=== PATIENT | female | born 1975 | race Caucasian/White ===

== ENCOUNTER → 2016-03-17 | Outpatient (CLI) | payer OTHER ==
[~2016-03-17] MED LIST: ALPR.25T PO; AZTH250C PO; BC PILL; BPR150TCR; CPR500T PO; DCS100C PO; DOXY100C2 PO; DOXYCYCLINE; ESCT10T PO; FESO4TAB2 PO; HYDR-34 PO; HYDR-3720 PO; HYDR1TAB66 PO; HYOS0.1217 PO; IBP800T PO; LEVO125T PO; LEVO1POW PO; MONONESSA PO; NAPR220C11 PO; ONDA-41 PO; PERCOCET PO; PHEN200T27 PO; PREN1TAB49; PRM25T PO; SPRINTEC PO; VIMOVO PO
--- OUTSIDE RECORDS SUMMARY | 2016-03-17 11:28 | XMS REPORT | Continuity of Care Document ---
Author Author [facility] Organization [facility] Address Unknown Phone Unavailable Care Team Providers Care Manager Human Capital Name Role Phone PCP Unavailable Source Comments Some departments are not documenting in the electronic medical record. If you do not see the information that you expected, contact Release of Information in the Health Information Management department at [phone] for further assistance in locating additional records.[facility] Active Allergies and Adverse Reactions Allergen Noted Date Severity Reactions Comments Other 12/25/2013 RASH Mastisol adhesive Current Medications Prescription Sig. Disp. Refills Start End Date Status Date levothyroxine (SYNTHROID) Take 125 mcg by mouth Active 125 mcg tablet daily. escitalopram oxalate Take 10 mg by mouth Active (LEXAPRO) 10 mg tablet daily. norgestimate-ethinyl Take 1 Tab by mouth Active estradiol(+) daily. (ORTHO-CYCLEN (28); SPRINTEC (28); MONONESSA (28); PREVIFEM) tablet fesoterodine ER(+) Take 4 mg by mouth daily. Active (TOVIAZ) 4 mg tablet HYDROcodone-acetaminophen Take 1 Tab by mouth every Active (+) (VICODIN) 10-325 mg 6 hours as needed. tablet amitriptyline (ELAVIL) 10 Take 10 mg by mouth at Active mg tablet bedtime daily. IBUPROFEN (MOTRIN PO) Take by mouth. Active Active Problems Problem Noted Date Pelvic pain in female 12/25/2013 Overview: Pelvic pain- long standing constipation and early POP. 05/2013: Robotic Hysterectomy and HARRISON for endometriosis. Did not resolve the pain. 10/2013: Cytsocopy Hydrodistention. (Dr. Lucero). Did not resolve pain. Medications include: Amytriptyline, Toviaz, and Lortab. L ast Assessment & Plan: Pelvic pain, possibly contributed by constipation and pelvic organ prolapse. Constipation continues to be a problem for the patient and we recommend a bowel regimen for regularity. Interstial cystitis education was provided. Pelvic floor therapy for dyspareunia. These conservative therapies will likely help the prolapse and we will reassess this in a few months. Plan: Constipation cocktail sheet along with miralax PFRT referral IC diet and information sheet RTC in 4 months to reassess prolapse Social History Tobacco Use Types Packs/Day Years Used Date Former Smoker Cigarettes Smokeless Tobacco: Never Used Alcohol Use Drinks/Week oz/Week Comments Yes Last Filed Vital Signs Vital Sign Reading Time Taken Blood Pressure 97/65 12/25/2013 11:12 AM CDT Pulse 93 12/25/2013 11:12 AM CDT Temperature - - Respiratory Rate 14 12/25/2013 11:12 AM CDT Height 1.676 m (5' 6") 12/25/2013 11:12 AM CDT Weight 72.757 kg (160 lb 6.4 oz) 12/25/2013 11:12 AM CDT Body Mass Index 25.9 12/25/2013 11:12 AM CDT Oxygen Saturation - - Plan of Care Health Maintenance Due Date Last Done Comments Physical (Comprehensive) 05/09/1983 Exam Pertussis Vaccine 05/09/1987 Tetanus Vaccine 1993 Cervical Cancer Screening 1997 Influenza Vaccine 10/29/2015 Results from Last 3 Months Not on file
--- NOTE | 2016-03-18 13:25 | Diagnostic Imaging Report ---
Bilateral screening mammogram. The current study was also evaluated with a Computer Aided Detection (CAD) system. INDICATION: Screening. No current complaints stated on the questionnaire. COMPARISON: 01/31/2011. FINDINGS: The breasts are composed of heterogeneously dense parenchyma which may decrease mammographic sensitivity. There are scattered benign-appearing calcifications. Allowing for technique and positional differences, no suspicious change is seen. IMPRESSION: No significant change. ACR BI-RADS Category 2: Benign findings. Result letter will be mailed to the patient. Note: At least 10% of breast cancer is not imaged by mammography. Dictated by: Dictated on workstation # [id number]
== END ==
LOC: RAD 11:24
PROVIDERS: ATTEND Obstetrics & Gynecology
DX: Z12.31 Encounter for screening mammogram for malignant neoplasm of breast (principal)

== ENCOUNTER → 2017-03-28 | Outpatient (CLI) | payer OTHER ==
--- NOTE | 2017-03-28 09:09 | Diagnostic Imaging Report ---
Indication: Routine screening. Comparison: Comparison is made with prior study from 03/17/2016 and 01/31/2011. Findings: Both breasts show marked parenchymal heterogeneity and increased density, limiting the sensitivity of mammography. No dominant mass or malignant-appearing microcalcifications are seen. The axillae are unremarkable. Impression: BI-RADS category 2. No mammographic features suspicious for malignancy are identified. ACR BI-RADS Category 2: Benign findings. Result letter will be mailed to the patient. Note: At least 10% of breast cancer is not imaged by mammography. Dictated on workstation # [id number]
== END ==
LOC: RAD 07:28
PROVIDERS: ATTEND Obstetrics & Gynecology
DX: Z12.31 Encounter for screening mammogram for malignant neoplasm of breast (principal)
CPT/HCPCS: 77067

== ENCOUNTER → 2017-08-11 | Outpatient (CLI) | payer OTHER ==
--- NOTE | 2017-08-11 14:34 | Diagnostic Imaging Report ---
EXAMINATION: Magnetic resonance imaging of the left knee without intravenous contrast. DATE: August 11, 2017. COMPARISON: MRI left knee, May 15, 2015. INDICATION: 42-year-old female, history of fall with twisting injury of the left knee approximately one month ago. TECHNIQUE: Multiplanar, multisequence non contrast enhanced MR imaging was accomplished. FINDINGS: MENISCI: There is an area of increased signal in the posterior horn of the medial meniscus, likely relating to prior tear. This is essentially unchanged. There is no parameniscal cyst. There is a longitudinal horizontal-type tear involving the anterior horn, body, and posterior horn of the lateral meniscus. There are some multidirectional components of the tear involving the posterior horn of the lateral meniscus. This is essentially unchanged since comparison MRI. LIGAMENTS AND TENDONS: The patient is status post anterior cruciate ligament reconstruction with intact graft. The posterior cruciate ligament is intact. The medial collateral ligament is intact. The iliotibial band, mid third lateral capsular ligament, fibular collateral ligament, biceps femoris tendon and conjoined tendon are intact. The quadriceps tendon and patella ligament are intact. JOINT: There is a full-thickness cartilage fissure involving the medial aspect of the lateral patellar facet. The medial and lateral compartment cartilage is grossly intact. There is no knee joint effusion, prominent synovitis, or identified intra-articular body. BONE: There is unremarkable bone marrow signal. Specifically, negative for fracture, osteomyelitis, osteonecrosis, or marrow replacing process. BURSAE AND SOFT TISSUES: No Bakers cyst. IMPRESSION: 1. Status post anterior cruciate ligament reconstruction with intact graft. Intact posterior cruciate ligament. 2. Unchanged appearance of prior tears of the lateral and medial menisci. No new meniscal tear. No parameniscal cyst. 4. Full-thickness cartilage fissure of the medial aspect of the lateral patellar facet. The additional articular cartilage is intact. No knee joint effusion. 5. No acute fracture, bone contusion, or evidence of osteonecrosis. Dictated by: Dictated on workstation # [id number]
== END ==
LOC: RAD 13:26
PROVIDERS: ATTEND Orthopaedic Surgery
DX: S83.282A Other tear of lateral meniscus, current injury, left knee, initial encounter (principal); S83.242A Other tear of medial meniscus, current injury, left knee, initial encounter; M94.8X6 Other specified disorders of cartilage, lower leg; M22.42 Chondromalacia patellae, left knee; X50.1XXA Overexertion from prolonged static or awkward postures, initial encounter; Z98.890 Other specified postprocedural states
CPT/HCPCS: 73721

== ENCOUNTER → 2018-03-30 | Outpatient (CLI) | payer BC, OTHER ==
--- NOTE | 2018-03-30 15:43 | Diagnostic Imaging Report ---
INDICATION: Screening. COMPARISON: Prior examination from 03/29/201718 and 03/17/2016. EXAMINATION: Bilateral digital screening mammogram with CAD. 3D tomographic images were obtained and reviewed. The current study was also evaluated with a Computer Aided Detection (CAD) system. FINDINGS: There are scattered fibroglandular densities, bilaterally. There are a few benign type calcifications. There is no dominant mass, spiculated lesion or suspicious calcification. Skin, nipples and axilla are unremarkable. IMPRESSION: Category 2, benign. ACR BI-RADS Category 2: Benign findings. Result letter will be mailed to the patient. Note: At least 10% of breast cancer is not imaged by mammography. Dictated on workstation # [id number]
== END ==
LOC: RAD 08:17
PROVIDERS: ATTEND Obstetrics & Gynecology
DX: Z12.31 Encounter for screening mammogram for malignant neoplasm of breast (principal)
CPT/HCPCS: 77067

== ENCOUNTER 2018-04-13 18:55 | Emergency (ER) | payer BC ==
[~2018-04-13] VITALS: Ht 167.6 cm; Wt 72.6 kg
--- OUTSIDE RECORDS SUMMARY | 2018-04-13 19:00 | XMS REPORT | Clinical Summary ---
Author Author [facility] Organization [facility] Address Unknown Phone Unavailable Care Team Providers Care Waterproof Coating Machine Tender Name Role Phone Pastora Gusman MD Unavailable Source Comments Some departments are not documenting in the electronic medical record. If you do not see the information that you expected, contact Release of Information in the Health Information Management department at [phone] for further assistance in locating additional records.[facility] Allergies Comments Active Allergy Reactions Severity Noted Date Mastisol adhesive Unclassified Drug RASH 12/25/2013 Medications End Date Status Medication Sig Dispensed Refills Start Date Active levothyroxine (SYNTHROID) Take 125 mcg 0 125 mcg tablet by mouth daily. Active escitalopram oxalate Take 10 mg by 0 (LEXAPRO) 10 mg tablet mouth daily. Active norgestimate-ethinyl Take 1 Tab by 0 estradiol(+) mouth daily. (ORTHO-CYCLEN (28); SPRINTEC (28); MONONESSA (28); PREVIFEM) tablet Active fesoterodine ER(+) Take 4 mg by 0 (TOVIAZ) 4 mg tablet mouth daily. Active HYDROcodone-acetaminophen Take 1 Tab by 0 (+) (VICODIN) 10-325 mg mouth every 6 tablet hours as needed. Active amitriptyline (ELAVIL) 10 Take 10 mg by 0 mg tablet mouth at bedtime daily. Active IBUPROFEN (MOTRIN PO) Take by 0 mouth. Active Problems Problem Noted Date Pelvic pain in female 12/25/2013 Overview: Pelvic pain- long standing constipation and early POP. 05/2013: Robotic Hysterectomy and HARRISON for endometriosis. Did not resolve the pain. 10/2013: Cytsocopy Hydrodistention. (Dr. Nic). Did not resolve pain. Medications include: Amytriptyline, [...] RTC in 4 months to reassess prolapse Family History Medical History Relation Name Comments Hypertension Father Heart Attack Mother Relation Name Status Comments Father Mother Social History Date Tobacco Use Types Packs/Day Years Used Former Smoker Cigarettes Smokeless Tobacco: Never Used Alcohol Use Drinks/Week oz/Week Comments Yes Sex Assigned at Date Recorded Not on file Industry Job Start Date Occupation Not on file Not on file Not on file Travel End Travel History Travel Start No recent travel history available. Last Filed Vital Signs Time Taken Vital Sign Reading 12/25/2013 11:12 AM CDT Blood Pressure 97/65 12/25/2013 11:12 AM CDT Pulse 93 - Temperature - 12/25/2013 11:12 AM CDT Respiratory Rate 14 - Oxygen Saturation - - Inhaled Oxygen - Concentration 12/25/2013 11:12 AM CDT Weight 72.8 kg (160 lb 6.4 oz) 12/25/2013 11:12 AM CDT Height 167.6 cm (5' 6") 12/25/2013 11:12 AM CDT Body Mass Index 25.89 Plan of Treatment Health Maintenance Due Date Last Done Comments PHYSICAL (COMPREHENSIVE) 05/09/1983 EXAM HIV SCREENING 05/09/1991 DTAP/TDAP VACCINES (1 - 1994 Tdap) CERVICAL CANCER SCREENING 2006 BREAST CANCER SCREENING 2016 INFLUENZA VACCINE 09/27/2017 Results Not on filefrom Last 3 Months
--- OUTSIDE RECORDS SUMMARY | 2018-04-13 19:01 | XMS REPORT | Continuity of Care Document ---
Author Author [facility] Organization [facility] Address Unknown Phone Unavailable Allergies Active Description Code Type Severity Reaction Onset Reported/Identified Relationship to Patient Clinical Status Yes Adhesive Bandage [id number] Drug Allergy Unknown N/A 06/12/2013 Yes MASTISOL MASTISOL Unknown RASH/HIVES 06/12/2013 Medications There is no data. Problems Date Dx Coded Attending Type Code Diagnosis Diagnosed By 11/10/2010 Ot 719.45 JOINT PAIN- PELVIS 11/10/2010 Ot V64.3 NO PROC FOR REASONS NEC 11/17/2010 Ot 244.9 HYPOTHYROIDISM NOS 11/17/2010 Ot 718.95 JT DERANGMENT NOS-PELVIS 11/17/2010 Ot V58.69 OTH MED,LT, CURRENT USE 11/17/2010 Ot V74.8 SCREEN- BACTERIAL DIS NEC 04/12/2011 Ot 300.00 ANXIETY STATE NOS 04/12/2011 Ot 480.9 VIRAL PNEUMONIA NOS 04/12/2011 Ot 786.59 CHEST PAIN NEC 04/12/2011 Ot V45.89 POSTSURGICAL STATES NEC 11/07/2012 ELIZABETH TOLLIVER MD Ot 244.9 HYPOTHYROIDISM NOS 11/07/2012 ELIZABETH TOLLIVER MD Ot 276.8 HYPOPOTASSEMIA 11/07/2012 ELIZABETH TOLLIVER MD Ot 287.5 THROMBOCYTOPENIA NOS 11/07/2012 ELIZABETH TOLLIVER MD Ot 288.50 LEUKOCYTOPENIA, UNSPECIFIED 11/07/2012 ELIZABETH TOLLIVER MD Ot 305.1 TOBACCO USE DISORDER 11/07/2012 ELIZABETH TOLLIVER MD Ot 564.00 UNSPEC CONSTIPATION 11/07/2012 ELIZABETH TOLLIVER MD Ot 569.3 RECTAL ANAL HEMORRHAGE 11/07/2012 ELIZABETH TOLLIVER MD Ot 592.0 CALCULUS OF KIDNEY 11/07/2012 ELIZABETH TOLLIVER MD Ot 617.9 ENDOMETRIOSIS NOS 11/07/2012 ELIZABETH TOLLIVER MD Ot 714.0 RHEUMATOID ARTHRITIS 11/07/2012 ELIZABETH TOLLIVER MD Ot 715.90 OSTEOARTHROS NOS-UNSPEC 11/07/2012 UNRULY GALLEGOS, ELIZABETH Zarate Ot 787.01 NAUSEA WITH VOMITING 11/07/2012 UNRULY GALLEGOS, ELIZABETH Zarate Ot 789.02 ABDOMINAL PAIN, LEFT UPPER QUADRANT 11/07/2012 UNRULY GALLEGOS, ELIZABETH Zarate Ot V12.79 PERSONAL HISTORY OTH SPEC DIGESTIVE SYST 06/19/2013 DANA GALLEGOS, LULA Alberto Ot 616.0 CERVICITIS 06/19/2013 DANA GALLEGOS, LULA Alberto Ot 617.9 ENDOMETRIOSIS NOS 06/19/2013 DANA GALLEGOS, LULA Alberto Ot 618.1 UTERINE PROLAPSE 06/19/2013 DANA GALLEGOS, LULA Alberto Ot 620.2 OVARIAN CYST NEC/NOS 06/19/2013 DANA GALLEGOS, LULA Alberto Ot 620.8 NONINFL DIS OVA/ADNX NEC 11/20/2013 AMINA GALLEGOS, DONA Piña Ot 592.0 CALCULUS OF KIDNEY 11/20/2013 AMINA GALLEGOS, DONA Piña Ot V74.8 SCREEN-BACTERIAL DIS NEC 07/09/2014 DANA GALLEGOS, LULA Alberto Ot 617.9 07/09/2014 DANA GALLEGOS, LULA Alberto Ot 625.9 07/09/2014 DANA GALLEGOS, LULA Alberto Ot V72.63 07/09/2014 DANA GALLEGOS, LULA Alberto Ot V72.84 07/09/2014 DANA GALLEGOS, LULA Alberto Ot V74.8 07/09/2014 AMINA GALLEGOS, DONA A Ot 592.0 07/09/2014 AMINA GALLEGOS, DONA A Ot 595.1 07/09/2014 AMINA GALLEGOS, DONA A Ot 598.9 07/09/2014 AMINA GALLEGOS, DONA A Ot 625.9 07/09/2014 AMINA GALLEGOS, DONA Piña Ot V72.84 05/15/2015 DANA GALLEGOS, LULA Alberto Ot 617.9 05/15/2015 DANA GALLEGOS, LULA Alberto Ot 625.9 05/15/2015 DANA GALLEGOS, LULA Alberto Ot V72.63 05/15/2015 DANA GALLEGOS, LULA Alberto Ot V72.84 05/15/2015 DANA GALLEGOS, LULA Alberto Ot V74.8 05/15/2015 AMINA GALLEGOS, DONA Piña Ot 592.0 05/15/2015 AMINA GALLEGOS, DONA Piña Ot 595.1 05/15/2015 AMINA GALLEGOS, DONA Piña Ot 598.9 05/15/2015 AMINA GALLEGOS, DONA Piña Ot 625.9 05/15/2015 AMINA GALLEGOS, DONA Piña Ot V72.84 05/18/2015 SANDI RODAS MEMBERSHIP SALES ADVISOR Ot M23.612 05/27/2015 SANDI RODAS [employer]BER[employer] SALES ADVISOR Ot M23.612 03/16/2016 Ot 719.65 JOINT SYMPTOM NEC-PELVIS 03/16/2016 Ot V72.83 EXAM PRE- OPERATIVE NEC 03/16/2016 Ot V74.8 SCREEN- BACTERIAL DIS NEC 03/16/2016 Ot V76.12 OTH SCREEN MAMMO-MALIGN NEOPLASM OF GLORIA 03/16/2016 Ot 569.49 RECTAL ANAL DIS NEC 03/16/2016 Ot 787.7 ABNORMAL FECES 03/16/2016 Ot 789.00 ABDOMINAL PAIN, UNSPECIFIED SITE 03/16/2016 Ot 863.40 COLON INJURY NOS-CLOSED 03/16/2016 Ot E000.8 OTHER EXTERNAL CAUSE STATUS 03/16/2016 Ot E928.9 ACCIDENT NOS 03/16/2016 Ot 780.60 FEVER, UNSPECIFIED 03/16/2016 Ot 789.00 ABDOMINAL PAIN, UNSPECIFIED SITE 03/16/2016 Ot 785.1 PALPITATIONS 03/16/2016 Ot 397.0 TRICUSPID VALVE DISEASE 03/16/2016 Ot 424.0 MITRAL VALVE DISORDER 03/16/2016 Ot 785.1 PALPITATIONS 03/16/2016 Ot 786.09 RESPIRATORY ABNORM NEC 03/16/2016 Ot 785.1 PALPITATIONS 03/16/2016 Ot 786.09 RESPIRATORY ABNORM NEC 03/16/2016 Ot 788.0 RENAL COLIC 03/16/2016 ELIZABETH TOLLIVER MD Ot 786.2 COUGH 03/16/2016 ELIZABETH TOLLIVER MD Ot 786.4 ABNORMAL SPUTUM 03/16/2016 ELIZABETH TOLLIVER MD Ot 599.70 HEMATURIA, UNSPECIFIED 03/16/2016 UNRULY GALLEGOS, ELIZABETH Zarate Ot 724.5 BACKACHE NOS 03/16/2016 ELIZABETH TOLLIVER MD Ot 789.00 ABDOMINAL PAIN, UNSPECIFIED SITE 03/18/2016 LULA CORTEZ MD, Ot Z12.31 ENCNTR SCREEN MAMMOGRAM FOR MALIGNANT NE 04/13/2016 LULA CORTEZ MD, Ot Z12.31 ENCNTR SCREEN MAMMOGRAM FOR MALIGNANT NE 04/20/2016 LULA CORTEZ MD Ot 617.9 ENDOMETRIOSIS NOS 04/20/2016 LULA CORTEZ MD Ot 625.9 FEM GENITAL SYMPTOMS NOS 04/20/2016 LULA CORTEZ MD, Ot V72.63 PRE-PROCEDURAL LABORATORY EXAMINATION 04/20/2016 LULA CORTEZ MD, Ot V72.84 EXAM PRE-OPERATIVE NOS 04/20/2016 LULA CORTEZ MD, Ot V74.8 SCREEN-BACTERIAL DIS NEC 04/20/2016 DONA HUYNH MD Ot 592.0 CALCULUS OF KIDNEY 04/20/2016 AMINA GALLEGOS, DONA Piña Ot 595.1 CHR INTERSTIT CYSTITIS 04/20/2016 DONA HUYNH MD Ot 598.9 URETHRAL STRICTURE NOS 04/20/2016 DONA HUYNH MD Ot 625.9 FEM GENITAL SYMPTOMS NOS 04/20/2016 DONA HUYNH MD Ot V72.84 EXAM PRE-OPERATIVE NOS 04/20/2016 SANDI RODAS [employer]BER[employer] SALES ADVISOR Ot M23.612 OT SPON DISRUPT OF ANTERIOR CRUCIATE LI 03/29/2017 LULA CORTEZ MD, Ot Z12.31 ENCNTR SCREEN MAMMOGRAM FOR MALIGNANT NE 04/26/2017 LULA CORTEZ MD, Ot Z12.31 ENCNTR SCREEN MAMMOGRAM FOR MALIGNANT NE 08/10/2017 ELIZABETH TOLLIVER MD Ot 786.2 COUGH 08/10/2017 ELIZABETH TOLLIVER MD Ot 786.4 ABNORMAL SPUTUM 08/10/2017 ELIZABETH TOLLIVER MD Ot 599.70 HEMATURIA, UNSPECIFIED 08/10/2017 ELIZABETH TOLLIVER MD Ot 724.5 BACKACHE NOS 08/10/2017 ELIZABETH TOLLIVER MD Ot 789.00 ABDOMINAL PAIN, UNSPECIFIED SITE 08/10/2017 LULA CORTEZ MD, Ot Z12.31 ENCNTR SCREEN MAMMOGRAM FOR MALIGNANT NE 08/10/2017 LULA CORTEZ MD, Ot Z12.31 ENCNTR SCREEN MAMMOGRAM FOR MALIGNANT NE 08/11/2017 ELIZABETH TOLLIVER MD Ot 786.2 COUGH 08/11/2017 ELIZABETH TOLLIVER MD Ot 786.4 ABNORMAL SPUTUM 08/11/2017 ELIZABETH TOLLIVER MD Ot 599.70 HEMATURIA, UNSPECIFIED 08/11/2017 ELIZABETH TOLLIVER MD Ot 724.5 BACKACHE NOS 08/11/2017 ELIZABETH TOLLIVER MD Ot 789.00 ABDOMINAL PAIN, UNSPECIFIED SITE 08/11/2017 LULA CORTEZ MD, Ot Z12.31 ENCNTR SCREEN MAMMOGRAM FOR MALIGNANT NE 08/11/2017 LULA CORTEZ MD, Ot Z12.31 ENCNTR SCREEN MAMMOGRAM FOR MALIGNANT NE 08/14/2017 PARDEEP PEREZ MD Ot M22.42 CHONDROMALACIA PATELLAE, LEFT KNEE 08/14/2017 PARDEEP PEREZ MD Ot M94.8X6 OTHER SPECIFIED DISORDERS OF CARTILAGE, 08/14/2017 PARDEEP PEREZ MD Ot S83.242A OTH TEAR OF MEDIAL MENISCUS, CURRENT INJ 08/14/2017 PARDEEP PEREZ MD Ot S83.282A OTH TEAR OF LAT MENSC, CURRENT INJURY, L 08/14/2017 PARDEEP PEREZ MD Ot X50.1XXA OVEREXERTION FROM PROLONGED STATIC OR AW 08/14/2017 PARDEEP PEREZ MD Ot Z98.890 OTHER SPECIFIED POSTPROCEDURAL STATES 08/23/2017 PARDEEP PEREZ MD, Ot M22.42 CHONDROMALACIA PATELLAE, LEFT KNEE 08/23/2017 PARDEEP PEREZ MD Ot M94.8X6 OTHER SPECIFIED DISORDERS OF CARTILAGE, 08/23/2017 PARDEEP PEREZ MD Ot S83.242A OTH TEAR OF MEDIAL MENISCUS, CURRENT INJ 08/23/2017 PARDEEP PEREZ MD Ot S83.282A OTH TEAR OF LAT MENSC, CURRENT INJURY, L 08/23/2017 PARDEEP PEREZ MD Ot X50.1XXA OVEREXERTION FROM PROLONGED STATIC OR AW 08/23/2017 PARDEEP PEERZ MD Ot Z98.890 OTHER SPECIFIED POSTPROCEDURAL STATES 03/26/2018 LULA CORTEZ MD Ot 617.9 ENDOMETRIOSIS NOS 03/26/2018 LULA CORTEZ MD Ot 625.9 FEM GENITAL SYMPTOMS NOS 03/26/2018 LULA CORTEZ MD, Ot V72.63 PRE-PROCEDURAL LABORATORY EXAMINATION 03/26/2018 LULA CORTEZ MD, Ot V72.84 EXAM PRE-OPERATIVE NOS 03/26/2018 LULA CORTEZ MD, Ot V74.8 SCREEN-BACTERIAL DIS NEC 03/26/2018 DONA HUYNH MD Ot 592.0 CALCULUS OF KIDNEY 03/26/2018 DONA HUYNH MD Ot 595.1 CHR INTERSTIT CYSTITIS 03/26/2018 DONA HUYNH MD Ot 598.9 URETHRAL STRICTURE NOS 03/26/2018 DONA HUYNH MD Ot 625.9 FEM GENITAL SYMPTOMS NOS 03/26/2018 DONA HUYNH MD Ot V72.84 EXAM PRE-OPERATIVE NOS 03/26/2018 SANDI [employer] SALES ADVISOR Ot M23.612 OT SPON DISRUPT OF ANTERIOR CRUCIATE LI 03/29/2018 LULA CORTEZ MD, Ot Z12.31 ENCNTR SCREEN MAMMOGRAM FOR MALIGNANT NE 03/29/2018 LULA CORTEZ MD, Ot Z12.31 ENCNTR SCREEN MAMMOGRAM FOR MALIGNANT NE 03/29/2018 PARDEEP PEREZ MD, Ot M22.42 CHONDROMALACIA PATELLAE, LEFT KNEE 03/29/2018 PARDEEP PEREZ MD, Ot M94.8X6 OTHER SPECIFIED DISORDERS OF CARTILAGE, 03/29/2018 PARDEEP PEREZ MD Ot S83.242A OTH TEAR OF MEDIAL MENISCUS, CURRENT INJ 03/29/2018 PARDEEP PEREZ MD, Ot S83.282A OTH TEAR OF LAT MENSC, CURRENT INJURY, L 03/29/2018 PARDEEP PEREZ MD, Ot X50.1XXA OVEREXERTION FROM PROLONGED STATIC OR AW 03/29/2018 PARDEEP PEREZ MD, Ot Z98.890 OTHER SPECIFIED POSTPROCEDURAL STATES 04/11/2018 LULA CORTEZ MD, Ot Z12.31 ENCNTR SCREEN MAMMOGRAM FOR MALIGNANT NE 04/13/2018 LULA CORTEZ MD, Ot 617.9 ENDOMETRIOSIS NOS 04/13/2018 DANA GALLEGOS, LULA Alberto Ot 625.9 FEM GENITAL SYMPTOMS NOS 04/13/2018 LULA CORTEZ MD Ot V72.63 PRE-PROCEDURAL LABORATORY EXAMINATION 04/13/2018 LULA CORTEZ MD Ot V72.84 EXAM PRE-OPERATIVE NOS 04/13/2018 LLUA CORTEZ MD Ot V74.8 SCREEN-BACTERIAL DIS NEC 04/13/2018 DONA HUYNH MD Ot 592.0 CALCULUS OF KIDNEY 04/13/2018 DONA HUYNH MD Ot 595.1 CHR INTERSTIT CYSTITIS 04/13/2018 DONA HUYNH MD Ot 598.9 URETHRAL STRICTURE NOS 04/13/2018 DONA HUYNH MD Ot 625.9 FEM GENITAL SYMPTOMS NOS 04/13/2018 DONA HUYNH MD Ot V72.84 EXAM PRE-OPERATIVE NOS 04/13/2018 SANDI [employer] SALES ADVISOR Ot M23.612 OT SPON DISRUPT OF ANTERIOR CRUCIATE LI 04/13/2018 LULA CORTEZ MD Ot Z12.31 ENCNTR SCREEN MAMMOGRAM FOR MALIGNANT NE Procedures There is no data. Results There is no data. Encounters ACCT No. Visit Date/Time Discharge Status Pt. Type Provider Facility Loc./Unit Complaint [id number] 03/30/2018 08:17:00 03/30/2018 23:59:59 CLS Outpatient LULA CORTEZ MD [facility] RAD SCREENING [id number] 08/11/2017 13:26:00 08/11/2017 23:59:59 CLS Outpatient PARDEEP PEREZ MD [facility] RAD CHONDROMALACIA PATELLA,LEFT [id number] 03/28/2017 07:28:00 03/28/2017 23:59:59 CLS Outpatient LULA CORTEZ MD [facility] RAD SCREENING [id number] 03/17/2016 11:24:00 03/17/2016 23:59:59 CLS Outpatient LULA CORTEZ MD [facility] RAD SCREENING [id number] 05/15/2015 13:11:00 05/15/2015 23:59:59 CLS Outpatient CLARK SANDI Tessa [employer] SALES ADVISOR [facility] RAD ACL TEAR [id number] 11/20/2013 06:06:00 11/20/2013 10:35:00 DIS Outpatient DONA HUYNH MD [facility] CHRONIC PELVIC PAIN [id number] 11/18/2013 09:18:00 11/18/2013 23:59:59 CLS Outpatient DNOA HUYNH MD [facility] PREOP CHRONIC PELVIC PAIN [id number] 10/09/2013 09:53:00 10/09/2013 23:59:59 CLS Outpatient DONA HUYNH MD [facility] RAD HEMATURIA [id number] 06/17/2013 06:03:00 06/19/2013 09:45:00 DIS Outpatient LULA CORTEZ MD [facility] CHRONIC PELVIC PAIN; EDOMETRIOSIS [id number] 06/12/2013 09:48:00 06/12/2013 23:59:59 CLS Outpatient LULA CORTEZ MD [facility] PREOP CHRONIC PELVIC PAIN; ENDOMETRIOSIS [id number] 11/05/2012 11:51:00 11/07/2012 18:30:00 DIS Inpatient ELIZABETH TOLLIVER MD [facility] SURGICAL ABN PAIN [id number] 10/03/2012 11:42:00 10/03/2012 23:59:59 CLS Outpatient ELIZABETH TOLLIVER MD [facility] RAD HEMATURIA, BACK AND ABD PAIN [id number] 07/30/2012 15:17:00 07/30/2012 23:59:59 CLS Outpatient ELIZABETH TOLLIVER MD [facility] RAD COUGH W/GREEN SPUTUM [id number] 04/13/2018 18:56:00 ACT Emergency KIM KELLEY MD [facility] ER L HAND MIDDLE FINGER LAC [id number] 12/08/2011 08:22:00 Document Registration [id number] 11/07/2011 07:44:00 Document Registration [id number] 10/26/2011 09:03:00 Document Registration [id number] 09/19/2011 08:51:00 Document Registration [id number] 09/14/2011 10:48:00 Document Registration [id number] 08/17/2011 14:34:00 Document Registration [id number] 04/10/2011 02:02:00 Document Registration [id number] 01/31/2011 10:28:00 Document Registration [id number] 11/17/2010 06:48:00 Document Registration [id number] 11/10/2010 05:34:00 Document Registration [id number] 11/05/2010 11:45:00 Document Registration
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
[2018-04-13] MEDS ORDERED: TETANUS,DIPTH,PERTUSS P/F (BOOSTRIX) 0.5 ML VIAL IM ONE (19:15)
[2018-04-13] MEDS ORDERED: IBUPROFEN 800 MG (MOTRIN) TAB PO ONE (19:15)
[2018-04-13] MEDS ORDERED: ONDANSETRON 4 MG (ZOFRAN) ORAL DISSOLVE TAB ONE (19:16)
[2018-04-13] MEDS ORDERED: ONDANSETRON 4 MG (ZOFRAN) ORAL DISSOLVE TAB PO ONE (19:30)
[2018-04-13] MEDS ORDERED: SULF1TAB35 PO (19:48)
[2018-04-13] MEDS ORDERED: TRAM50TA2 PO (19:48)
[2018-04-13 20:03] VITALS: BP 120/93
== END 2018-04-13 20:05 | disposition home or self-care (01) ==
LOC: EDUNIT# 18:55 → ER 18:56
DX: S61.212A Laceration without foreign body of right middle finger without damage to nail, initial encounter (principal); K58.9 Irritable bowel syndrome, unspecified; M06.9 Rheumatoid arthritis, unspecified; E03.9 Hypothyroidism, unspecified; Z90.710 Acquired absence of both cervix and uterus; Z88.8 Allergy status to other drugs, medicaments and biological substances; W26.0XXA Contact with knife, initial encounter
CPT/HCPCS: 90715

== ENCOUNTER → 2019-01-09 | Outpatient (CLI) | payer OTHER ==
[~2019-01-09] MED LIST changes: +SULF1TAB35 PO; +TRAM50TA2 PO
--- NOTE | 2019-01-09 17:46 | Diagnostic Imaging Report ---
INDICATION: Cough x10 days PA and lateral chest Heart size and pulmonary vascularity are normal. Lungs are clear. There are no effusions or pneumothoraces. IMPRESSION: Negative chest Dictated by: Dictated on workstation # [id number]
== END ==
LOC: RAD 17:29
PROVIDERS: ATTEND Internal Medicine
DX: R05 Cough (principal)
CPT/HCPCS: 71046

== ENCOUNTER → 2019-03-22 | Outpatient (CLI) | payer OTHER ==
[~2019-03-22] MED LIST changes: +GADOBUTROL 7.5 MMOL/7.5 ML (GADAVIST) VIAL IV ONE; -TRAM50TA2 PO; +TRM50T PO
--- NOTE | 2019-03-22 14:41 | Diagnostic Imaging Report ---
EXAMINATION: MRI of the abdomen with and without contrast. TECHNIQUE: Multiplanar, multisequence MR images of the abdomen were obtained with and without intravenous contrast. HISTORY: Chronic pelvic pain and lower abdominal pain. COMPARISON: None available. FINDINGS: The liver is normal without steatosis. No suspicious liver lesions are seen. No surface nodularity. Gallbladder is normal. There is no biliary ductal dilation. Pancreas is normal. Spleen is normal. Adrenal glands are normal. Kidneys are normal without hydronephrosis. Visualized bowel is normal. No lymphadenopathy is seen. Lung bases are clear. No osseous lesions are seen. IMPRESSION: 1. Normal abdominal MRI. Dictated by: Dictated on workstation # [id number]
--- NOTE | 2019-03-22 14:57 | Diagnostic Imaging Report ---
PROCEDURE: MRI pelvis with and without contrast. TECHNIQUE: Multiplanar, multisequence MRI of the pelvis was performed with and without contrast. INDICATION: Pelvic pain, history of endometriosis. COMPARISON: None available. FINDINGS: Visualized bowel is normal. Urinary bladder is normal. The uterus and ovaries have been removed. The vagina is normal. Urethra is normal. Rectum is normal. No free fluid is seen in the pelvis. No evidence for endometriosis. Sacrum and sacroiliac joints appear normal. No osseus lesions are seen. No lymphadenopathy. IMPRESSION: 1. Normal MRI of the pelvis. Dictated by: Dictated on workstation # [id number]
== END ==
LOC: RAD 12:47
PROVIDERS: ATTEND Obstetrics & Gynecology
DX: R10.2 Pelvic and perineal pain (principal); Z87.442 Personal history of urinary calculi; Z87.42 Personal history of other diseases of the female genital tract
CPT/HCPCS: 72197; 74183

== ENCOUNTER → 2019-04-01 | Outpatient (CLI) | payer OTHER ==
[~2019-04-01] MED LIST changes: -GADOBUTROL 7.5 MMOL/7.5 ML (GADAVIST) VIAL IV ONE
--- NOTE | 2019-04-01 09:00 | Diagnostic Imaging Report ---
INDICATION: Routine screening. Comparison is made with prior mammogram 03/30/2018 and 03/28/2017. 2-D and 3-D bilateral screening mammography was performed with a Computer Aided Detection (CAD) system. 3-D tomosynthesis was also performed and reviewed. FINDINGS: Both breasts are heterogeneously dense, limiting the sensitivity of mammography. The parenchymal pattern is stable. No mass or malignant appearing microcalcifications are seen. Axillae are unremarkable. IMPRESSION: No mammographic features suspicious for malignancy are identified. ACR BI-RADS Category 1: Negative. Result letter will be mailed to the patient. Note: At least 10% of breast cancer is not imaged by mammography. Dictated by: Dictated on workstation # [id number]
== END ==
LOC: RAD 07:24
PROVIDERS: ATTEND Obstetrics & Gynecology
DX: Z12.31 Encounter for screening mammogram for malignant neoplasm of breast (principal)
CPT/HCPCS: 77067

== ENCOUNTER → 2019-08-08 | Outpatient (CLI) | payer OTHER | LOC: LABNPT 09:01 | PROVIDERS: ATTEND Internal Medicine | DX: R51 Headache (principal); R53.83 Other fatigue; Z20.828 Contact with and (suspected) exposure to other viral communicable diseases | CPT/HCPCS: 87635 ==

== ENCOUNTER 2019-11-21 13:38 | Outpatient (RCR) | payer OTHER | END 2019-12-10 | disposition home or self-care (01) | PROVIDERS: ATTEND Physician Assistant | DX: M25.552 Pain in left hip (principal); M54.5 Low back pain ==

== ENCOUNTER 2020-04-07 15:47 | Outpatient (RCR) | payer OTHER | END 2020-04-09 | disposition home or self-care (01) | PROVIDERS: ATTEND Orthopaedic Surgery | DX: M70.62 Trochanteric bursitis, left hip (principal); G57.02 Lesion of sciatic nerve, left lower limb ==

== ENCOUNTER → 2020-05-05 | Outpatient (CLI) | payer OTHER ==
--- NOTE | 2020-05-05 12:19 | Diagnostic Imaging Report ---
Indication: Routine screening Comparison is made with prior mammogram 04/01/2019 and 03/30/2018. 2-D and 3-D bilateral screening mammography was performed with CAD. Both breast are heterogeneously dense, limiting the sensitivity of mammography. There are benign calcifications in both breasts. No mass or malignant appearing microcalcifications are seen. Axillae are unremarkable. IMPRESSION: BI-RADS Category 2 No mammographic features suspicious for malignancy are identified. ACR BI-RADS Category 2: Benign findings. Result letter will be mailed to the patient. Note: At least 10% of breast cancer is not imaged by mammography. Dictated by: Dictated on workstation # [id number]
== END ==
LOC: RAD 08:30
PROVIDERS: ATTEND Obstetrics & Gynecology
DX: Z12.31 Encounter for screening mammogram for malignant neoplasm of breast (principal)
CPT/HCPCS: 77063; 77067

== ENCOUNTER 2020-06-12 15:03 | Outpatient (RCR) | payer OTHER | END 2020-07-14 | disposition home or self-care (01) | PROVIDERS: ATTEND Orthopaedic Surgery | DX: M70.62 Trochanteric bursitis, left hip (principal); G57.02 Lesion of sciatic nerve, left lower limb ==

== ENCOUNTER 2020-08-10 15:45 | Outpatient (RCR) | payer OTHER | END 2020-08-10 16:40 | disposition home or self-care (01) | PROVIDERS: ATTEND Orthopaedic Surgery | DX: M70.62 Trochanteric bursitis, left hip (principal); G57.02 Lesion of sciatic nerve, left lower limb ==

== ENCOUNTER → 2021-05-17 | Outpatient (CLI) | payer BC, OTHER ==
[~2021-05-17] MED LIST changes: -SULF1TAB35 PO; +SULF1TAB38 PO
--- NOTE | 2021-05-17 10:02 | Diagnostic Imaging Report ---
INDICATION: Routine screening. COMPARISON: 05/05/2020 and 04/01/2019. TECHNIQUE: 2D and 3D bilateral screening mammography was performed with CAD. FINDINGS: Both breasts are heterogeneously dense, limiting the sensitivity of mammography. The parenchymal pattern appears to be stable. No dominant mass or malignant-appearing microcalcifications are seen. There are benign calcifications bilaterally. The axillae are unremarkable. IMPRESSION: No mammographic features suspicious for malignancy are identified. ACR BI-RADS Category 2: Benign findings. Result letter will be mailed to the patient. Note: At least 10% of breast cancer is not imaged by mammography. Dictated by: Dictated on workstation # [id number]
== END ==
LOC: RAD 07:30
PROVIDERS: ATTEND Nurse Practitioner Family
DX: Z12.31 Encounter for screening mammogram for malignant neoplasm of breast (principal)
CPT/HCPCS: 77063; 77067

== ENCOUNTER 2022-05-11 06:19 | Outpatient (CLI) | payer BC ==
[~2022-05-11] VITALS: Ht 167.6 cm; Wt 76.2 kg
[2022-05-11] MEDS ORDERED: LEVO125T PO (10:36)
[2022-05-11] MEDS ORDERED: MULT-593 PO (10:36)
[2022-05-11] MEDS ORDERED: NORG1TAB14 PO (10:36)
[2022-05-11] MEDS ORDERED: FAMO20TA3 PO (10:36)
[2022-05-11] MEDS ORDERED: HYDR-3820 PO (10:36)
[2022-05-11] MEDS ORDERED: SEMA1PEN3 SQ (10:36)
[2022-05-11] MEDS ORDERED: ESCI10TA PO (10:36)
[2022-05-11] MEDS ORDERED: CHOL500050 PO (10:36)
== END 2022-05-11 10:40 ==
LOC: PREOP 06:19
PROVIDERS: ATTEND Internal Medicine
DX: Z01.818 Encounter for other preprocedural examination (principal); Z12.11 Encounter for screening for malignant neoplasm of colon

== ENCOUNTER 2022-05-20 08:22 | Day surgery (SDC) | payer BC ==
--- NOTE | 2022-05-10 11:54 | HISTORY AND PHYSICAL ---
COLONOSCOPY HISTORY AND PHYSICAL DATE OF ADMISSION: 05/20/2022 HISTORY OF PRESENT ILLNESS: The patient is a 47-year-old white female referred by Dr. Dickinson for screening colonoscopy, her first. She reports that her father has had a number of colon polyps removed with no history of malignancy and has had several uncles that have had colon polyps removed as well. She does have a history of irritable bowel syndrome, which has been under reasonable control, especially since she has been on Ozempic for weight loss. She tends toward constipation predominancy, aware that this is aggravated by hydrocodone that she takes 2 daily for chronic pelvic pain. PAST SURGICAL HISTORY: Significant for cholecystectomy, appendectomy and total abdominal hysterectomy, none of which are recent. The hysterectomy was performed for severe endometriosis. She has also had arthroscopic evaluation of the knees. SOCIAL HISTORY: The patient is employed in a managerial position with no past smoking history and no significant alcohol intake. REVIEW OF SYSTEMS: CONSTITUTIONAL: Denies night sweats, chills, fever. Has lost undisclosed amount of weight on Ozempic. GASTROINTESTINAL: Constipation issues without abdominal pain, bloating, melena or bright red blood per rectum. PULMONARY: Denies cough, wheezing or shortness of breath. CARDIOVASCULAR: Denies orthopnea, PND, pedal edema or dyspnea on exertion. PHYSICAL EXAMINATION: GENERAL: Reveals a pleasant, normal white female who appears to be in no acute distress. VITAL SIGNS: Weight 168 pounds, blood pressure 120/64. CHEST: Clear. CARDIOVASCULAR: Reveals a regular rate and rhythm without murmur, S3, or S4. ABDOMEN: Soft, supple without mass, organomegaly, or tenderness. No bruits noted. Bowel sounds positive. EXTREMITIES: Revealed no cyanosis, clubbing or edema. ASSESSMENT AND PLAN: The patient is being set up for screening colonoscopy with a family history for colon polyps, but no known family history for colon cancer. Electronic medical record was reviewed. Prep instructions were given and questions were answered. I thank you for the referral of this pleasant lady. Job ID: [id number] DocumentID: [id number] Dictated Date: 05/10/2022 10:41:38 Order Desk Clerk Date: 05/10/2022 11:13:00 Dictated By: PRIMITIVO CORDOVA MD
[~2022-05-20] VITALS: Ht 172.7 cm; Wt 76.2 kg
[~2022-05-20 08:22] MED LIST changes: +CHOL500050 PO; +ESCI10TA PO; +FAMO20TA3 PO; +HYDR-3820 PO; +MULT-593 PO; +NORG1TAB14 PO; +SEMA1PEN3 SQ
--- NOTE | 2022-05-20 08:38 | Pre-Op Note & Conscious Sedat ---
Pre-Operative Progress Note Date H&P Reviewed: May 20, 2022 Time H&P Reviewed: 08:38 History & Physical: H&P Reviewed, Patient Examed, No changes noted Pre-Op Diagnosis: screening Moderate Sedation PreProcedure ASA Score 2 Airway Lungs Heart ASA score ASA 1: a normal healthy patient ASA 2: a patient with a mild systemic disease (mid diabetes, controlled hypertension, obesity ASA 3: a patient with a severe systemic disease that limits activity (angina, COPD, prior Myocardial infarction) ASA 4: a patient with an incapacitating disease that is a constant threat to life (CHF, renal failure) ASA 5: a moribund patient not expected to survive 24 hrs. (ruptured aneurysm) ASA 6: a declared brain- patient whose organs are being harvested. For emergent operations, add the letter E after the classification Mallampati Classification Grade 2 Sedation Plan Analgesia, Amnesia, Plan communicated to team members, Discussed options with patient/fam, Discussed risks with patient/fam The patient is an appropriate candidate to undergo the planned procedure, sedation, and anesthesia. The patient immediately re-assessed prior to indication. PRIMITIVO CORDOVA MD May 20, 2022 08:38
[2022-05-20] MEDS ORDERED: LACTATED RINGERS 1,000 ML IV STA (08:39)
[2022-05-20 08:40] VITALS: BP 110/68
[2022-05-20] MEDS ORDERED: PROPOFOL INJECTION 50 ML IV ONE ×2 (10:04→10:23)
[2022-05-20 10:39] VITALS: BP 96/58
--- NOTE | 2022-05-20 10:43 | Progress Note-Post Operative ---
Post-Procedure Note Physician (s)/Trim Attacher (s) Physician PRIMITIVO CORDOVA MD Pre-Procedure Diagnosis Pre-Procedure Diagnosis: screening Post-Procedure Diagnosis Post-operative diagnosis: Prior to undergoing colonoscopy digital rectal evaluation was performed. Anal sphincter tone was normal and the perianal reflexes intact. No abnormalities noted on digital inspection anal canal or distal rectal vault. The colonoscope was then inserted into the rectum and under direct visualization advanced to the cecum. The cecum was identified by identification of the ileocecal valve cecal strap and appendiceal orifice. Photographic documentation was obtained. A careful inspection was made as the colonoscope was withdrawn. Quality the prep was good. Findings: There are no evidence for internal or external hemorrhoids. The rectum sigmoid descending colon splenic flexure transverse colon hepatic flexure ascending colon and cecum were unremarkable with no evidence for neoplasia or diverticular disease. Assessment: Normal colonoscopy to the cecum. Would advocate consideration for repeat screening colonoscopy in 10 years. CC: MD ART Pop MARK D MD May 20, 2022 10:43
[2022-05-20 10:45] VITALS: BP 100/63
--- NOTE | 2022-05-20 11:10 | Anesthesia-General Post-Op ---
MAC Patient Condition Mental Status/LOC: Same as Preop Cardiovascular: Satisfactory Nausea/Vomiting: Absent Respiratory: Satisfactory Pain: Controlled Complications: Absent Post Op Complications Complications None Follow Up Care/Instructions Patient Instructions None needed. Anesthesiology Discharge Order Discharge Order Patient is doing well, no complaints, stable vital signs, no apparent adverse anesthesia problems. No complications reported per nursing. SHARON JULIAN CRNA May 20, 2022 11:10
[2022-05-20 11:15] VITALS: BP 101/65
[2022-05-20 11:17] VITALS: BP 101/65
== END 2022-05-20 11:22 | disposition home or self-care (01) ==
LOC: ENDO 08:22
PROVIDERS: ATTEND Internal Medicine
DX: Z12.11 Encounter for screening for malignant neoplasm of colon (principal); K58.1 Irritable bowel syndrome with constipation; R10.2 Pelvic and perineal pain; Z79.899 Other long term (current) drug therapy; Z79.891 Long term (current) use of opiate analgesic; Z83.71 Family history of colonic polyps